=== PATIENT | male | born 1995 ===

== ENCOUNTER 2021-04-09 18:36 | Emergency (ER) | payer SELFPAY ==
[~2021-04-09] VITALS: Ht 172.7 cm; Wt 76.5 kg
[2021-04-09 18:40] VITALS: BP 135/65
== END 2021-04-09 22:33 | disposition left against medical advice (07) ==
LOC: M ED 18:36
DX: Z53.21 Procedure and treatment not carried out due to patient leaving prior to being seen by health care provider (principal)